=== PATIENT | male | born 1990 | race Hispanic/Latino ===

== ENCOUNTER 2024-01-31 03:23 | Emergency (ER) | payer MEDICAID ==
[~2024-01-31] VITALS: Ht 177.8 cm; Wt 99.8 kg
[2024-01-31 03:00] LABS: CARBON DIOXIDE 28 mmol/L (21-32); CHLORIDE 100 mmol/L (101-111); GLOMERULAR FILTR. RATE CALC 101 mL/min (>90); GLUCOSE,RANDOM 116 mg/dL (70-105); POTASSIUM 3.6 mmol/L (3.5-5.1); SODIUM SERUM 136 mmol/L (136-145); UREA NITROGEN, BLOOD 14 mg/dL (7-18)
[2024-01-31 03:04] LABS: ALCOHOL, BLOOD < 3 mg/dL (0-10); SALICYLATE 3.1 mg/dL (2.8-20.0)
[2024-01-31 03:09] LABS: ACETAMINOPHEN < 1 mcg/mL (10-29)
[2024-01-31 03:42] LABS: APPEARANCE,URINE CLEAR (CLEAR); BILIRUBIN,URINE NEGATIVE (NEGATIVE); COLOR,URINE LIGHT-YELLOW (YELLOW); GLUCOSE, URINE (UA) NEGATIVE (NEGATIVE); KETONES,URINE NEGATIVE (NEGATIVE); LEUKOCYTE ESTERASE ,URINE NEGATIVE Leu/uL (NEGATIVE); NITRATE,URINE NEGATIVE (NEGATIVE); OCCULT BLOOD,URINE NEGATIVE (NEGATIVE); PH,URINE 5.5 (5.0-8.0); PROTEIN,URINE NEGATIVE (NEGATIVE); UROBILINOGEN,URINE 0.2 mg/dL (0.2-1.0)
[2024-01-31 03:43] LABS: ADD UA MICROSCOPIC NO
[2024-01-31 03:50] LABS: AMPHET/METH SCREEN,URINE NEGATIVE (NEGATIVE); BARBITURATE SCREEN, URINE NEGATIVE (NEGATIVE); BENZODIAZEPINES SCREEN,URINE NEGATIVE (NEGATIVE); CANNABINOID SCREEN,URINE POSITIVE (NEGATIVE); COCAINE SCREEN,URINE POSITIVE (NEGATIVE); OPIATE SCREEN,URINE NEGATIVE (NEGATIVE); PHENCYCLIDINE SCREEN,URINE NEGATIVE (NEGATIVE)
[2024-01-31 03:53] LABS: BASOPHILS # (AUTO) 0.12 K/uL (0.00-0.20); BASOPHILS % (AUTO) 0.7 % (0.0-5.0); EOSINOPHILS # (AUTO) 0.22 K/uL (0.00-0.70); EOSINOPHILS % (AUTO) 1.4 % (0.0-8.0); HEMATOCRIT 41.6 % (42-54); IMMATURE GRANULOCYTE ABSOLUTE 0.07 K/uL (0-1); LYMPHOCYTES # (AUTO) 4.2 K/uL (1.0-4.8); LYMPHOCYTES % (AUTO) 25.7 % (21.0-51.0); MEAN CORPUSCULAR HEMOGLOBIN 29.4 pg (27.0-33.0); MEAN CORPUSCULAR HGB CONC 34.6 g/dL (32.0-36.0); MEAN CORPUSCULAR VOLUME 84.9 fL (79-99); MONOCYTES # (AUTO) 1.1 K/uL (0.1-1.0); MONOCYTES % (AUTO) 6.6 % (3.0-13.0); NEUTROPHILS # (AUTO) 10.6 K/uL (1.8-7.7); NEUTROPHILS % (AUTO) 65.2 % (40.0-77.0); PLATELET COUNT (AUTO) 372 K/uL (130-400); RED CELL DISTRIBUTION WIDTH 12.3 % (11.0-15.5); WHITE BLOOD COUNT (AUTO) 16.3 K/uL (4.8-10.8)
--- NOTE | 2024-01-31 04:00 | NUR ---
[employer] [facility] CONTACTED TO INITIATE A SCREENING
--- NOTE | 2024-01-31 04:20 | NUR ---
TANYA, SCREENER WITH [facility] [place] AT BEDSIDE
--- NOTE | 2024-01-31 04:27 | ERN ---
General Chief Complaint: Suicidal Ideation Stated Complaint: SUICIDAL IDEATION Time Seen by MD: 03:26 Time Seen by Midlevel: 03:26 Source: patient History of Present Illness Initial Comments Patient is a 33-year-old male with a past medical history of anxiety and depression presenting for evaluation of suicidal ideation. Patient states he has been having suicidal thoughts since June but they have progressively worsened. Today he states his plan is to take his medications to try and kill himself. Patient has no other concerns at this time. Allergies: Coded Allergies: No Known Drug Allergies (Unverified Allergy, Unknown, 01/31/24) Past Medical History Past Medical History: Anxiety, Depression, Schizophrenia Past Surgical History: None ROS Dictation CONSTITUTIONAL: Negative except for HPI HEAD/FACE: Negative except for HPI EENT: Negative except for HPI RESPIRATORY: Negative except for HPI GASTROINTESTINAL/ABDOMINAL: Negative except for HPI GENITOURINARY: Negative except for HPI MUSCULOSKELETAL: Negative except for HPI INTEGUMENTARY: Negative except for HPI NEUROLOGICAL/PSYCH: Negative except for HPI HEMATOLOGIC/LYMPHATIC: Negative except for HPI All Systems Negative, Except as noted above. 13 point review of systems assessed and all negative except for above. Physical Exam Physical Exam Dictation Vital Signs reviewed General Appearance: Alert, oriented x 3, no acute distress, well developed, nourished. Head and Face: non-traumatic. Eyes: PERRL, pink conjunctivas, eyelid no trauma, anterior chamber with arcus senilis. Ears: Pinnas intact and no signs of trauma or erythema ear canals clear and no discharge TM no erythema Nose: No discharge, no bleeding. Oropharynx: Mouth normal, tongue pink, pharynx clear,no erythema, tonsils no exudates, no abscesses noted, mucous membrane moist Neck: Supple, non-tender, no thyromegaly, no masses, no JVD, no bruits Breast:Deferred Chest:No tenderness, no crepitus, no paradoxical movement, no retractions Lungs:Clear, well-ventilated, symmetric, no rales, no wheezing, no rhonchi, no stridor, good breath sounds bilaterally Heart: Regular rate, regular rhythm, no murmur, no gallops Vascular: no peripheral edema, Abdomen: Soft, positive bowel sounds, nondistended, no guarding, nontender, no rebound, no masses no hepatomegaly, no splenomegaly, no Church's sign, no hernias. Rectal: Deferred Genital: Deferred Neurological: Normal speech, motor function intact, sensory function intact Musculoskeletal: Neck nontender, full range of motion, back nontender, full range of motion, Extremities: nontender, full range of motion Skin: Color pink, dry, no turgor, no rash, no lacerations, no abrasions, no contusions. Lymphatic: Deferred Results Laboratory and Microbiology Lab and Micro Result Laboratory Tests Test 01/31/24 02:45 01/31/24 03:34 White Blood Count 16.3 K/uL (4.8-10.8) H Red Blood Count 4.90 MIL/uL (4.50-6.20) Hemoglobin 14.4 g/dL (14.0-18.0) Hematocrit 41.6 % (42-54) L Mean Corpuscular Volume 84.9 fL (79-99) Mean Corpuscular Hemoglobin 29.4 pg (27.0-33.0) Mean Corpuscular Hemoglobin Concent 34.6 g/dL (32.0-36.0) Red Cell Distribution Width 12.3 % (11.0-15.5) Platelet Count 372 K/uL (130-400) Mean Platelet Volume 9.6 fL (7.5-10.5) Immature Granulocyte % (Auto) 0.4 % (0-1) Neutrophils (%) (Auto) 65.2 % (40.0-77.0) Lymphocytes (%) (Auto) 25.7 % (21.0-51.0) Monocytes (%) (Auto) 6.6 % (3.0-13.0) Eosinophils (%) (Auto) 1.4 % (0.0-8.0) Basophils (%) (Auto) 0.7 % (0.0-5.0) Neutrophils # (Auto) 10.6 K/uL (1.8-7.7) H Lymphocytes # (Auto) 4.2 K/uL (1.0-4.8) Monocytes # (Auto) 1.1 K/uL (0.1-1.0) H Eosinophils # (Auto) 0.22 K/uL (0.00-0.70) Basophils # (Auto) 0.12 K/uL (0.00-0.20) Absolute Immature Granulocyte (auto 0.07 K/uL (0-1) Nucleated Red Blood Cells 0.0 % (0.0-0.19) Sodium Level 136 mmol/L (136-145) Potassium Level 3.6 mmol/L (3.5-5.1) Chloride Level 100 mmol/L (101-111) L Carbon Dioxide Level 28 mmol/L (21-32) Blood Urea Nitrogen 14 mg/dL (7-18) Creatinine 1.0 mg/dL (0.5-1.3) Glomerular Filtration Rate Calc 101 mL/min (>90) Random Glucose 116 mg/dL (70-105) H Total Calcium 8.3 mg/dL (8.5-10.1) L Salicylates Level 3.1 mg/dL (2.8-20.0) Acetaminophen Level < 1 mcg/mL (10-29) L Serum Alcohol < 3 mg/dL (0-10) Urine Color LIGHT-YELLOW (YELLOW) Urine Appearance CLEAR (CLEAR) Urine pH 5.5 (5.0-8.0) Urine Specific [place] 1.010 (1.001-1.031) Urine Protein NEGATIVE mg/dL (NEGATIVE) Urine Glucose (UA) NEGATIVE mg/dL (NEGATIVE) Urine Ketones NEGATIVE mg/dL (NEGATIVE) Urine Occult Blood NEGATIVE (NEGATIVE) Urine Nitrate NEGATIVE (NEGATIVE) Urine Bilirubin NEGATIVE mg/dL (NEGATIVE) Urine Urobilinogen 0.2 mg/dL (0.2-1.0) Urine Leukocyte Esterase NEGATIVE Laura/uL Urine Opiates Screen NEGATIVE (NEGATIVE) Urine Barbiturates Screen NEGATIVE (NEGATIVE) Urine Phencyclidine Screen NEGATIVE (NEGATIVE) Urine Amphetamines Screen NEGATIVE (NEGATIVE) Urine Benzodiazepines Screen NEGATIVE (NEGATIVE) Urine Cocaine Screen POSITIVE (NEGATIVE) H Urine Marijuana (THC) Screen POSITIVE (NEGATIVE) H Labs Reviewed?: Yes MDM Patient came in for suicidal ideation. The screener was called however patient did not meet criteria for inpatient psychiatric care. As soon as patient heard about this decision he eloped from the emergency department. ED Course Orders Procedure Category Date Status Time Cbc With Differential LAB 01/31/24 Complete Basic Metabolic Panel LAB 01/31/24 Complete Alcohol, Blood LAB 01/31/24 Complete 03 Salicylate LAB 01/31/24 Complete Acetaminophen LAB 01/31/24 Complete Urinalysis Profile LAB 01/31/24 Complete 03:25 Drug Screen Urine LAB 01/31/24 Complete 03:25 Vital Signs Date Time Temp Pulse Resp B/P (MAP) Pulse Ox O2 Delivery O2 Flow Rate FiO2 01/31/24 04:30 98.2 80 16 133/71 97 Room Air* 0 21 01/31/24 03:30 97.9 85 16 130/73 97 Room Air 0 01/31/24 03:26 97.9 85 16 130/73 97 Room Air* 0 21 DX & DISP Disposition: Other(Comment) (Eloped) Departure Impression: Primary Impression: Eloped from emergency department Additional Impression: Psychiatric problem Condition: Stable I have reviewed the case, and I agree with, Diagnosis and Plan SULEMA DAVEY Jan 31, 2024 04:27 KEM FUENTES DO Feb 04, 2024 18:40
[2024-01-31 04:30] VITALS: BP 133/71; PULSE 80; RESP 16; TEMP 98.2; O2SAT 97
--- NOTE | 2024-01-31 04:50 | NUR ---
PER TANYA, PATIENT DOES NOT MEET CRITERIA FOR INPATIENT SERVICES. PATIENT ASKED SCREENER TO MAKE SOMETHING UP SO HE WILL MEET CRITERIA FOR ADMISSION. SCREENER EXPLAINED IT DOESN'T WORK THAT WAY AND PATIENT BECAME UPSET, BEGAN COLLECTING HIS BELONGINGS, TOLD TANYA "I HOPE YOUR BABY DIES IF YOU EVER HAVE ONE" AND DEPARTED ER THROUGH [facility] DO[facility] WITHOUT RECEIVING DISCHARGE INSTRUCTIONS.
== END 2024-01-31 04:55 | disposition left against medical advice (07) ==
LOC: EDH 03:23
DX: F99 Mental disorder, not otherwise specified (principal); F20.9 Schizophrenia, unspecified
CPT/HCPCS: 99283; 80048; 80305; 85025; 36415; 81003; G0481

== ENCOUNTER 2024-02-24 00:18 | Emergency (ER) | payer MEDICAID ==
[~2024-02-24] VITALS: Ht 172.7 cm; Wt 77.1 kg
[2024-02-24] MEDS: 0.9%NACL 1000ML 1,000 ML IV ONE (00:33)
--- NOTE | 2024-02-24 00:40 | NUR ---
PATIENT REFUSED IV FLUIDS
[2024-02-24 01:05] LABS: CARBON DIOXIDE 31 mmol/L (21-32); CHLORIDE 100 mmol/L (101-111); CREATININE 1.1 mg/dL (0.5-1.3); GLOMERULAR FILTR. RATE CALC 90 mL/min (>90); GLUCOSE,RANDOM 91 mg/dL (70-105); SODIUM SERUM 137 mmol/L (136-145); UREA NITROGEN, BLOOD 15 mg/dL (7-18)
[2024-02-24 01:08] LABS: BASOPHILS # (AUTO) 0.15 K/uL (0.00-0.20); BASOPHILS % (AUTO) 1.1 % (0.0-5.0); EOSINOPHILS # (AUTO) 0.44 K/uL (0.00-0.70); EOSINOPHILS % (AUTO) 3.4 % (0.0-8.0); HEMATOCRIT 44.1 % (42-54); IMMATURE GRANULOCYTE ABSOLUTE 0.16 K/uL (0-1); LYMPHOCYTES # (AUTO) 4.8 K/uL (1.0-4.8); LYMPHOCYTES % (AUTO) 36.6 % (21.0-51.0); MEAN CORPUSCULAR HEMOGLOBIN 29.2 pg (27.0-33.0); MEAN CORPUSCULAR HGB CONC 33.1 g/dL (32.0-36.0); MEAN CORPUSCULAR VOLUME 88.2 fL (79-99); MONOCYTES # (AUTO) 1.2 K/uL (0.1-1.0); MONOCYTES % (AUTO) 8.9 % (3.0-13.0); NEUTROPHILS # (AUTO) 6.4 K/uL (1.8-7.7); NEUTROPHILS % (AUTO) 48.8 % (40.0-77.0); PLATELET COUNT (AUTO) 346 K/uL (130-400); RED CELL DISTRIBUTION WIDTH 12.8 % (11.0-15.5); WHITE BLOOD COUNT (AUTO) 13.1 K/uL (4.8-10.8)
[2024-02-24 01:33] LABS: ACETAMINOPHEN < 1 mcg/mL (10-29); ALCOHOL, BLOOD < 3 mg/dL (0-10); CREATINE KINASE, TOTAL 111 U/L (21-232)
--- NOTE | 2024-02-24 02:02 | NUR ---
[facility] CRISIS LINE CALLED FOR SCREENER
[2024-02-24 02:12] LABS: APPEARANCE,URINE CLEAR (CLEAR); BILIRUBIN,URINE NEGATIVE (NEGATIVE); COLOR,URINE COLORLESS (YELLOW); GLUCOSE, URINE (UA) NEGATIVE (NEGATIVE); KETONES,URINE NEGATIVE (NEGATIVE); LEUKOCYTE ESTERASE ,URINE NEGATIVE Leu/uL (NEGATIVE); NITRATE,URINE NEGATIVE (NEGATIVE); OCCULT BLOOD,URINE NEGATIVE (NEGATIVE); PROTEIN,URINE NEGATIVE (NEGATIVE); UROBILINOGEN,URINE 0.2 mg/dL (0.2-1.0)
[2024-02-24 02:14] LABS: ADD UA MICROSCOPIC NO
[2024-02-24 02:19] LABS: AMPHET/METH SCREEN,URINE NEGATIVE (NEGATIVE); BARBITURATE SCREEN, URINE NEGATIVE (NEGATIVE); BENZODIAZEPINES SCREEN,URINE NEGATIVE (NEGATIVE); CANNABINOID SCREEN,URINE POSITIVE (NEGATIVE); COCAINE SCREEN,URINE POSITIVE (NEGATIVE); OPIATE SCREEN,URINE NEGATIVE (NEGATIVE); PHENCYCLIDINE SCREEN,URINE NEGATIVE (NEGATIVE)
--- NOTE | 2024-02-24 04:00 | NUR ---
still pending [facility] screener to arrive
--- NOTE | 2024-02-24 04:15 | ERN ---
General Chief Complaint: Psych Evaluation Stated Complaint: SUICIDAL IDEATION Time Seen by MD: 00:23 Source: patient History of Present Illness Initial Comments PATIENT HAS A 34-YEAR-OLD MALE, NEW TO EVALUATED FOR SUICIDAL IDEATION. HER PATIENT HAS BEEN HAVING SUICIDAL THOUGHTS AND HAS A HISTORY IS PSYCHIATRIC ILLNESS. PATIENT STATES HE WAS PLANNING ON HANGING HIMSELF WITH A ROPE. Allergies: Coded Allergies: No Known Drug Allergies (Unverified Allergy, Unknown, 01/31/24) Past Medical History Past Medical History: Anxiety, Depression, Schizophrenia Past Surgical History: None ROS Dictation CONSTITUTIONAL: NO CHILLS, NO FEVER, NO WEAKNESS, NO DIAPHORESIS, NO MALAISE. HEAD/FACE: NO SIGNS OF TRAUMA. EENT: NO EYE PAIN, NO BLURRED VISION, NO TEARING, NO DOUBLE VISION, NO EAR PAIN, NO EAR DISCHARGE, NO NOSE PAIN, NO NASAL CONGESTION, NO THROAT PAIN, NO THROAT SWELLING, NO MOUTH PAIN. RESPIRATORY: NO COUGH, NO ORTHOPNEA, NO SOB, NO STRIDOR, NO WHEEZING. CARDIOVASCULAR: NO CHEST PAIN, NO EDEMA, NO PALPITATIONS, NO SYNCOPE. GASTROINTESTINAL/ABDOMINAL: NO ABDOMINAL PAIN, NO CONSTIPATION, NO DIARRHEA, NO NAUSEA, NO VOMITING. GENITOURINARY: NO ABNORMAL DISCHARGE, NO DYSURIA, NO FREQUENT URINATION, NO HEMATURIA. NO COMPLAINTS OF PAIN IN THE GENITALS. MUSCULOSKELETAL: NO BACK PAIN, NO GOUT, NO JOINT PAIN, NO JOINT SWELLING, NO MUSCLE PAIN, NO MUSCLE STIFFNESS, NO NECK PAIN. INTEGUMENTARY: NO CHANGE IN COLOR, NO CHANGE IN HAIR/NAILS, NO DRYNESS, NO LESION, NO LUMPS, NO RASH. NEUROLOGICAL/PSYCH: NO ANXIETY, NOT DEPRESSED, NO EMOTIONAL PROBLEM, NO HEADACHE, NO NUMBNESS, NO PRE-EXISTING DEFICIT, NO HISTORY OF SEIZURES, NO TREMORS, NO WEAKNESS. HEMATOLOGIC/LYMPHATIC: NOT ANEMIC, NO HISTORY OF BLOOD CLOTS, NO APPARENT BLEEDING, NO BRUISING, GLANDS NOT SWOLLEN. ALL SYSTEMS NEGATIVE, EXCEPT NOTED. Physical Exam Physical Exam Dictation VITAL SIGNS: REVIEWED. GENERAL APPEARANCE: ALERT, ORIENTED X3, NO ACUTE DISTRESS, OBESE. HEAD AND FACE: NON-TRAUMATIC. EYES: PERRL, PINK CONJUNCTIVAS, EYELID NO TRAUMA, ANTERIOR CHAMBER CLEAR. EARS: PINNAS INTACT AND NO SIGNS OF TRAUMA OR ERYTHEMA. EAR CANALS CLEAR AND NO DISCHARGE. TMS NO ERYTHEMA. NOSE: NO DISCHARGE, NO BLEEDING. OROPHARYNX: MOUTH NORMAL, TEETH NO CARIES, TONGUE PINK. PHARYNX CLEAR, NO ERYTHEMA. TONSILS NO EXUDATES, NO ABSCESSES NOTED. MUCOUS MEMBRANE MOIST. NECK: SUPPLE, NON-TENDER, NO THYROMEGALY, NO MASSES, NO JVD, NO BRUITS. BREAST: DEFERRED. CHEST: NO TENDERNESS, NO CREPITUS, NO PARADOXICAL MOVEMENT, NO RETRACTIONS. LUNGS: CLEAR, WELL-VENTILATED, SYMMETRIC, NO RALES, NO WHEEZING, NO RHONCHI, NO STRIDOR, GOOD BREATH SOUNDS BILATERALLY. HEART: REGULAR RATE, REGULAR RHYTHM, NO MURMUR, NO GALLOPS. VASCULAR: NO PERIPHERAL EDEMA. ABDOMEN: SOFT, POSITIVE BOWEL SOUNDS, NONDISTENDED, NO GUARDING, NONTENDER, NO REBOUND, NO MASSES NO HEPATOMEGALY, NO SPLENOMEGALY, NO EISENBERG'S SIGN, NO HERNIAS. RECTAL: DEFERRED. GENITAL: DEFERRED. NEUROLOGICAL: NORMAL SPEECH, GROSS MOTOR FUNCTION INTACT, GROSS SENSORY FUNCTION INTACT. MUSCULOSKELETAL: NECK NONTENDER, FULL RANGE OF MOTION, BACK NONTENDER, FULL RANGE OF MOTION. EXTREMITIES: NONTENDER, FULL RANGE OF MOTION. SKIN: COLOR PINK, DRY, NO TURGOR, NO RASH, NO LACERATIONS, NO ABRASIONS, NO CONTUSIONS. LYMPHATICS: DEFERRED. Results Laboratory and Microbiology Lab and Micro Result Laboratory Tests Test 02/24/24 00:43 02/24/24 01:49 White Blood Count 13.1 K/uL (4.8-10.8) H Red Blood Count 5.00 MIL/uL (4.50-6.20) Hemoglobin 14.6 g/dL (14.0-18.0) Hematocrit 44.1 % (42-54) Mean Corpuscular Volume 88.2 fL (79-99) Mean Corpuscular Hemoglobin 29.2 pg (27.0-33.0) Mean Corpuscular Hemoglobin Concent 33.1 g/dL (32.0-36.0) Red Cell Distribution Width 12.8 % (11.0-15.5) Platelet Count 346 K/uL (130-400) Mean Platelet Volume 9.5 fL (7.5-10.5) Immature Granulocyte % (Auto) 1.2 % (0-1) H Neutrophils (%) (Auto) 48.8 % (40.0-77.0) Lymphocytes (%) (Auto) 36.6 % (21.0-51.0) Monocytes (%) (Auto) 8.9 % (3.0-13.0) Eosinophils (%) (Auto) 3.4 % (0.0-8.0) Basophils (%) (Auto) 1.1 % (0.0-5.0) Neutrophils # (Auto) 6.4 K/uL (1.8-7.7) Lymphocytes # (Auto) 4.8 K/uL (1.0-4.8) Monocytes # (Auto) 1.2 K/uL (0.1-1.0) H Eosinophils # (Auto) 0.44 K/uL (0.00-0.70) Basophils # (Auto) 0.15 K/uL (0.00-0.20) Absolute Immature Granulocyte (auto 0.16 K/uL (0-1) Nucleated Red Blood Cells 0.0 % (0.0-0.19) Sodium Level 137 mmol/L (136-145) Potassium Level 4.0 mmol/L (3.5-5.1) Chloride Level 100 mmol/L (101-111) L Carbon Dioxide Level 31 mmol/L (21-32) Blood Urea Nitrogen 15 mg/dL (7-18) Creatinine 1.1 mg/dL (0.5-1.3) Glomerular Filtration Rate Calc 90 mL/min (>90) Random Glucose 91 mg/dL (70-105) Total Calcium 8.6 mg/dL (8.5-10.1) Total Creatine Kinase 111 U/L (21-232) Salicylates Level 4.0 mg/dL (2.8-20.0) # Acetaminophen Level < 1 mcg/mL (10-29) L Serum Alcohol < 3 mg/dL (0-10) Urine Color COLORLESS (YELLOW) Urine Appearance CLEAR (CLEAR) Urine pH 5.0 (5.0-8.0) Urine Specific [place] 1.003 (1.001-1.031) Urine Protein NEGATIVE mg/dL (NEGATIVE) Urine Glucose (UA) NEGATIVE mg/dL (NEGATIVE) Urine Ketones NEGATIVE mg/dL (NEGATIVE) Urine Occult Blood NEGATIVE (NEGATIVE) Urine Nitrate NEGATIVE (NEGATIVE) Urine Bilirubin NEGATIVE mg/dL (NEGATIVE) Urine Urobilinogen 0.2 mg/dL (0.2-1.0) Urine Leukocyte Esterase NEGATIVE Laura/uL Urine Opiates Screen NEGATIVE (NEGATIVE) Urine Barbiturates Screen NEGATIVE (NEGATIVE) Urine Phencyclidine Screen NEGATIVE (NEGATIVE) Urine Amphetamines Screen NEGATIVE (NEGATIVE) Urine Benzodiazepines Screen NEGATIVE (NEGATIVE) Urine Cocaine Screen POSITIVE (NEGATIVE) H Urine Marijuana (THC) Screen POSITIVE (NEGATIVE) H Labs Reviewed?: Yes MDM MDM: DIFFERENTIAL DIAGNOSIS: Suicidal ideation, psychiatric illness Patient is a 34-year-old male coming in to be evaluated for psychiatric illness acute exacerbation. Psychiatric facility evaluated patient does not meet criteria for inpatient psych. Patient will be discharged and was advised follow up as outpatient for further management and long-term treatment. Patient will be discharged in stable condition. ED Course Orders Procedure Category Date Status Time Cbc With Differential LAB 02/24/24 Complete 00:24 Alcohol, Blood LAB 02/24/24 Complete 00:24 Salicylate LAB 02/24/24 Complete 00:24 Acetaminophen LAB 02/24/24 Complete 00:24 Urinalysis Profile LAB 02/24/24 Complete 00:24 0.9%Nacl 1000ml (Ns PHA 02/24/24 In Process 1000ml) 00:30 Creatine Kinase, Total LAB 02/24/24 Complete 00:24 Basic Metabolic Panel LAB 02/24/24 Complete 00:24 Drug Screen Urine LAB 02/24/24 Complete 00:24 Current Medications Medications (Trade) Dose Ordered Sig/Tab Route PRN Reason Start Time Stop Time Status Last Admin Dose Admin Sodium Chloride 1,000 ml @ 125 mls/hr ONCE ONCE IV 02/24/24 00:30 02/24/24 08:29 Vital Signs Date Time Temp Pulse Resp B/P (MAP) Pulse Ox O2 Delivery O2 Flow Rate FiO2 02/24/24 06:09 98.2 76 16 122/68 97 Room Air* 0 21 02/24/24 00:26 98.1 81 16 123/75 97 Room Air* 0 21 02/24/24 00:20 98.1 81 16 123/75 97 Room Air 0 DX & DISP Disposition: Discharge Departure Impression: Primary Impression: Psychiatric problem Condition: Stable Additional Instructions: FOLLOW-UP WITH PRIMARY CARE PROVIDER IN 1 TO 2 DAYS. TAKE MEDICATIONS DIRECTED HERE IN THE EMERGENCY ROOM. OKAY TO CONTINUE HOME MEDICATIONS UNLESS OTHERWISE DISCUSSED DURING YOUR VISIT IN THE EMERGENCY ROOM TODAY. RETURN TO YOUR NEAREST EMERGENCY ROOM IF SYMPTOMS WORSEN OR IF THERE IS NO IMPROVEMENT. CALL 911 IF YOU NEED IMMEDIATE ASSISTANCE. TAKE TYLENOL [id number] NEEDED AND IF NO CONTRAINDICATIONS ARE PRESENT. INCREASE ORAL HYDRATION. A WOUND CULTURE OR URINE CULTURE WAS ORDERED HERE IN THE EMERGENCY ROOM DEPARTMENT PLEASE FOLLOW-UP WITH PRIMARY CARE PROVIDER AND ADVISE THEM TO GET REPEAT PORTS FROM OUR FACILITY. IF YOU HAD ANY KONSTANTIN WRAP/SPLINTS THAT WERE APPLIED HERE, PLEASE DO NOT REMOVE THEM UNTIL YOU SEE YOUR PRIMARY CARE OR SPECIALTY. Referrals: Referrals: NONE (PCP) SULEMA GARCIA MD Time of Disposition: 06:31 BIN LUNDBERG MD Feb 24, 2024 04:14
--- NOTE | 2024-02-24 05:14 | NUR ---
Adeline Singleton Screener here to evaluate patient
[2024-02-24 06:09] VITALS: BP 122/68; PULSE 76; RESP 16; TEMP 98.2; O2SAT 97
--- NOTE | 2024-02-24 06:10 | NUR ---
[facility] screener at patient bedside, continuing to evaluate patient.
--- NOTE | 2024-02-24 06:30 | NUR ---
PER [facility] SCREENER, PATIENT DOES NOT MEET CRITERIA. ER PHYSICIAN INFORMED.
--- NOTE | 2024-02-24 06:31 | NUR ---
SEE [employer] [place] SCREENING PLACED IN CHART
== END 2024-02-24 06:47 | disposition home or self-care (01) ==
LOC: EDH 00:18
DX: F99 Mental disorder, not otherwise specified (principal); F20.9 Schizophrenia, unspecified; F32.A Depression, unspecified; F41.9 Anxiety disorder, unspecified
CPT/HCPCS: 99283; 82550; 80048; 80305; 85025; 36415; 81003; G0481

== ENCOUNTER → 2025-02-21 | Emergency (ER) | payer MEDICAID ==
[~2025-02-21] VITALS: Ht 175.3 cm; Wt 99.8 kg
[2025-02-21 11:33] VITALS: BP 144/65; PULSE 98; RESP 19; TEMP 98.2
--- NOTE | 2025-02-21 11:42 | NUR ---
UPON ARRIVAL, PATIENT DECLINED CARE. VOICED TO [facility] EMS STAFF NO LONGER DESIRED EVALUATION. SEEN ESCORTED OUT BY EMS STAFF.
--- NOTE | 2025-02-21 11:43 | ERN ---
ED Note History of Present Illness Stated Complaint: SUICIDAL IDEATION Chief Complaint: Suicidal Ideation Time Seen by MD: 11:35 Dictation: PATIENT IS A 35-YEAR-OLD MALE WHO SUDDENLY BECAME SUICIDAL THIS MORNING AFTER HE GOT INTO AN ARGUMENT WITH THE HOTEL OR MOTEL RECEPTIONIST OF THE LONG-TERM HOUSE HE WAS LIVING IN. HE STATES HE WAS TOLD HE NEEDED TO LEAVE THE HOUSE SO HE BECAME SUICIDAL AND CALLED EMS BECAUSE HE NEEDS A PLACE TO STAY. NO NO PLAN AT THIS TIME Allergies: Coded Allergies: No Known Drug Allergies (Unverified Allergy, Unknown, 01/31/24) Past Medical History Past Medical History: Anxiety, Depression, Schizophrenia Surgical History: None RN Note Reviewed/Agreed w/PFSH: Yes Review of System Dictation CONSTITUTIONAL: NEGATIVE EXCEPT FOR HPI HEAD/FACE: NEGATIVE EXCEPT FOR HPI EENT: NEGATIVE EXCEPT FOR HPI RESPIRATORY: NEGATIVE EXCEPT FOR HPI GASTROINTESTINAL/ABDOMINAL: NEGATIVE EXCEPT FOR HPI GENITOURINARY: NEGATIVE EXCEPT FOR HPI MUSCULOSKELETAL: NEGATIVE EXCEPT FOR HPI INTEGUMENTARY: NEGATIVE EXCEPT FOR HPI NEUROLOGICAL/PSYCH: NEGATIVE EXCEPT FOR HPI SUICIDAL IDEATION HEMATOLOGIC/LYMPHATIC: NEGATIVE EXCEPT FOR HPI ALL SYSTEMS NEGATIVE, EXCEPT NOTED ABOVE. 13 POINT REVIEW OF SYSTEMS ASSESSED AND ALL NEGATIVE EXCEPT FOR ABOVE. Physical Exam Dictation VITAL SIGNS REVIEWED GENERAL APPEARANCE: ALERT, ORIENTED X 3, NO ACUTE DISTRESS, WELL DEVELOPED, NOURISHED. HEAD AND FACE: NON-TRAUMATIC. EYES: PERRL, PINK CONJUNCTIVAS, EYELID NO TRAUMA, ANTERIOR CHAMBER WITH ARCUS SENILIS. EARS: PINNAS INTACT AND NO SIGNS OF TRAUMA OR ERYTHEMA EAR CANALS CLEAR AND NO DISCHARGE TM NO ERYTHEMA NOSE: NO DISCHARGE, NO BLEEDING. OROPHARYNX: MOUTH NORMAL, TONGUE PINK, PHARYNX CLEAR,NO ERYTHEMA, TONSILS NO EXUDATES, NO ABSCESSES NOTED, MUCOUS MEMBRANE MOIST NECK: SUPPLE, NON-TENDER, NO THYROMEGALY, NO MASSES, NO JVD, NO BRUITS BREAST:DEFERRED CHEST:NO TENDERNESS, NO CREPITUS, NO PARADOXICAL MOVEMENT, NO RETRACTIONS LUNGS:CLEAR, WELL-VENTILATED, SYMMETRIC, NO RALES, NO WHEEZING, NO RHONCHI, NO STRIDOR, GOOD BREATH SOUNDS BILATERALLY HEART: REGULAR RATE, REGULAR RHYTHM, NO MURMUR, NO GALLOPS VASCULAR: NO PERIPHERAL EDEMA, ABDOMEN: SOFT, POSITIVE BOWEL SOUNDS, NONDISTENDED, NO GUARDING, NONTENDER, NO REBOUND, NO MASSES NO HEPATOMEGALY, NO SPLENOMEGALY, NO EISENBERG'S SIGN, NO HERNIAS. RECTAL: DEFERRED GENITAL: DEFERRED NEUROLOGICAL: NORMAL SPEECH, MOTOR FUNCTION INTACT, SENSORY FUNCTION INTACT PASSIVE SUICIDAL IDEATION OR THOUGHTS, NO PLAN MUSCULOSKELETAL: NECK NONTENDER, FULL RANGE OF MOTION, BACK NONTENDER, FULL RANGE OF MOTION, EXTREMITIES: NONTENDER, FULL RANGE OF MOTION SKIN: COLOR PINK, DRY, NO TURGOR, NO RASH, NO LACERATIONS, NO ABRASIONS, NO CONTUSIONS. LYMPHATIC: DEFERRED Results (Laboratory/Radiology) Labs Reviewed?: Yes ED Course ED Course Orders Procedure Category Date Status Time Drug Screen Urine LAB 02/21/25 Logged 11:39 Cbc With Differential LAB 02/21/25 Logged 11:39 Alcohol, Blood LAB 02/21/25 Logged 11:39 Salicylate LAB 02/21/25 Logged 11:39 Acetaminophen LAB 02/21/25 Logged 11:39 Urinalysis Profile LAB 02/21/25 Logged 11:39 Basic Metabolic Panel LAB 02/21/25 Logged 11:39 Medical Decision Making MDM 1150/PER EMS, PATIENT WENT DIRECTLY TO THE EMERGENCY ROOM WAITING AREA WITH HIS LUGGAGE AND WALKED OUT OF THE FRONT DOOR. HE TOLD SECURITY ON THE WAY OUT HE DID NOT WANT TO BE EVALUATED DX & DISP Disposition: AMA Departure Impression: Primary Impression: Passive suicidal ideations Additional Impression: Homeless Condition: Stable Referrals: SELF,REFERRAL (PCP) Time of Disposition: 11:48 I have reviewed the case, and I agree with, Diagnosis and Plan ALISON HERNANDEZP Feb 21, 2025 11:43
--- NOTE | 2025-02-21 11:45 | NUR ---
PER PROVIDER ALISON HERNANDEZ NP, PATIENT DENIE SUICIDAL OR HOMICIDAL IDEATION. PATIENT VOICED TO PROVIDER THAT HE NEEDED A SIMPLY WAS SEARCHING FOR A PLACE TO STAY AFTER BEING REMOVED FROM HIS LIVING SPACE.
--- NOTE | 2025-02-21 11:46 | NUR ---
NOTE PATIENT WAS NOT EVALUATED BY PRIMARY NURSE. NO VITAL SIGNS TAKEN. PATIENT SEEN ESCORTED OUT BY EMS STAFF. REPORT RECIEVED BY ALISON HERNANDEZ NP, [facility] EMS AND EMERITA WANG.
[2025-02-21 12:12] LABS: AMPHET/METH SCREEN,URINE NEGATIVE (NEGATIVE); BARBITURATE SCREEN, URINE NEGATIVE (NEGATIVE); CANNABINOID SCREEN,URINE NEGATIVE (NEGATIVE); COCAINE SCREEN,URINE NEGATIVE (NEGATIVE)
[2025-02-21 12:19] LABS: APPEARANCE,URINE CLEAR (CLEAR); GLUCOSE, URINE (UA) 100 mg/dL (NEGATIVE); LEUKOCYTE ESTERASE ,URINE NEGATIVE Leu/uL (NEGATIVE); NITRATE,URINE NEGATIVE (NEGATIVE); OCCULT BLOOD,URINE NEGATIVE (NEGATIVE)
[2025-02-21 12:20] LABS: ADD UA MICROSCOPIC YES
[2025-02-21 12:49] LABS: NON-SQUAMOUS EPITHELIAL CELL Rare /HPF (0-2); SQUAMOUS EPITHELIAL CELL,UR Rare /HPF (0-2)
== END | disposition left against medical advice (07) ==
LOC: EDH 11:33
DX: R45.851 Suicidal ideations (principal); F20.9 Schizophrenia, unspecified; Z53.29 Procedure and treatment not carried out because of patient's decision for other reasons; Z59.00 Homelessness unspecified; Z79.899 Other long term (current) drug therapy
CPT/HCPCS: 80305; 81001; 99285